=== PATIENT | female | born 1980 | race Caucasian/White ===

== ENCOUNTER 2016-10-06 09:35 | Emergency (ER) | payer SELFPAY ==
[2016-10-06 09:40] VITALS: TEMP 97.9; BMI 21.4
[2016-10-06 11:23] LABS: LEUKOCYTES/URINE 2+ (NEGATIVE); NITRITE/URINE NEG (NEGATIVE); RBC/URINE 0-2 (0-5); URINE OCCULT BLOOD NEG (NEG/TRACE)
--- NOTE | 2016-10-06 11:33 | EDPRACDOC ---
- General Information Chief Complaint: Lower Leg Pain Stated Complaint: LEG PAIN Time Seen by Provider: 10/06/16 11:19 Mode Of Arrival: Car Home Medications: Home Medications Diazepam [Valium] 5 mg PO QHS #14 tablet 10/06/16 Allergies/Adverse Reactions: Allergies Allergy/AdvReac Type Severity Reaction Status Date / Time No Known Allergies Allergy Verified 10/06/16 09:43 - History of Present Illness Onset: 1 WK Medications/Treatment DIRECTOR ENGINEERING Treated With Medication DIRECTOR ENGINEERING YES Medications DIRECTOR ENGINEERING (Medication/ GOODIES POWDER-0400 Dose/Time) HPI: PT PRESENTS TODAY WITH 1 WEEK OF BILATERAL LOWER LEG CRAMPING X 1 WEEK. PT STATES THAT THIS ONLY OCCURS AT NIGHT AND IT IS FINDING IT DIFFICULT TO SLEEP. STATES SHE GOOGLED THE CAUSES AND BELIEVES IT MIGHT EITHER BE DIABETES, RELATED TO A SPIDER BITE SHE INCURRED 2 WEEKS AGO OR . PT STATES 3 EPISODES OF DIARRHEA IN THE LAST 24 HOURS. PT DENIES FEVER, MALLORY, CP, SHOB, ABD PAIN, N/V, DYSURIA. DENIES POLYURIA/DYPSIA/PHAGIA. Mechanism: Reports: None Circumstances: Reports: None History of: Reports: None Severity: Reports: Moderate Able to Bear Weight: Fully Pain In: Reports: Leg - Treatment Prior to ED Arrival Reported Medications/Treatment DIRECTOR ENGINEERING Treated With Medication DIRECTOR ENGINEERING YES Medications DIRECTOR ENGINEERING (Medication/ GOODIES POWDER-0400 Dose/Time) ED Past Medical History - History Reviewed Yes Nurses notes reviewed and agree except as marked - Patient Medical History Surgical History: Reports: Appendectomy. Denies: Hysterectomy - Social Medical History Smoking Status: Heavy tobacco smoker (5 or more cigarettes/day or daily pipe/ cigar) EDM Review of Systems - Review of Systems ROS Negative Except as Marked: Yes All systems reviewed and were negative except as marked Constitutional: No Symptoms Reported Ears: No Symptoms Reported Throat: No Symptoms Reported Nose: No Symptoms Reported Respiratory: No Symptoms Reported Cardiovascular: No Symptoms Reported Gastrointestinal: Diarrhea (X 3) Genitourinary: No Symptoms Reported Neurological: No Symptoms Reported Musculoskeletal: Leg (CRAMPING) Integumentary: Wound - Physical Exam Constitutional: Alert (Awake), No apparent distress Oriented to: Time, Person, Place Last recorded Vital Signs: Last Vital Signs Temp 97.9 F 10/06/16 09:36 Pulse 97 10/06/16 09:36 Resp 20 10/06/16 09:36 BP 137/73 10/06/16 09:36 Pulse Ox 97 10/06/16 09:36 Oxygen Pulse Oxygen Saturation 97 O2 Device Oxygen Flow Rate Fraction of Inspired Oxygen ( FIO2) - HEENT Head: Normal Eye Exam: Normal Oropharynx: Normal Tympanic Membrane: Normal ENT EAC: Normal Nose: No Symptoms Reported Neck: Normal, Denies Pain, Midline - Respiratory/Cardiovascular Respiratory: Normal - CTA Cardiovascular: Normal - GI Palpation: Normal Tenderness: Non tender - Musculoskeletal Back: Normal Extremities: Other (NOTED SMALL RED HAYLEY THAT PT STATES IS A SPIDER BITE; NO NOTED CELLULITIS, SWELLING) - Integumentary Skin: Normal Lymphatics: Normal - Neurologic Cerebellar: Normal Mood Description: Normal Thought: Coherent Perception: Normal ED Low Extremities Phys Exam - Lower Leg Bilateral Anterior Lower Leg Symptoms: Normal (NO SWELLING, PITTING EDEMA, ERYTHEMA, PETECHIA;) - Results Urine Color Yellow 10/06/16 10:55 Urine Clarity Sl hzy 10/06/16 10:55 Urine pH 6.0 (5.0-8.0) 10/06/16 10:55 Ur Specific [place] 1.025 (1.003-1.035) 10/06/16 10:55 Urine Protein Neg (NEG/TRACE) 10/06/16 10:55 Urine Glucose (UA) Neg (NEGATIVE) 10/06/16 10:55 Urine Ketones Neg (NEGATIVE) 10/06/16 10:55 Urine Occult Blood Neg (NEG/TRACE) 10/06/16 10:55 Urine Nitrite Neg (NEGATIVE) 10/06/16 10:55 Urine Bilirubin Neg (NEGATIVE) 10/06/16 10:55 Urine Urobilinogen <2.0 MG/DL (0-1) 10/06/16 10:55 Ur Leukocyte Esterase 2+ (NEGATIVE) H 10/06/16 10:55 Urine RBC 0-2 (0-5) 10/06/16 10:55 Urine WBC 2-5 (0-5) 10/06/16 10:55 Ur Epithelial Cells 4+ 10/06/16 10:55 Urine Bacteria Few (NEG/FEW) 10/06/16 10:55 Urine Mucus Mod (NEG/OCC) H 10/06/16 10:55 Urine Test Neg (NEGATIVE) 10/06/16 10:55 Lab Results 10/06/16 10/06/16 10:55 10:55 Urine Color Yellow Urine Clarity Sl hzy Urine pH 6.0 Ur Specific [place] 1.025 Urine Protein Neg Urine Glucose (UA) Neg Urine Ketones Neg Urine Occult Blood Neg Urine Nitrite Neg Urine Bilirubin Neg Urine Urobilinogen <2.0 Ur Leukocyte Esterase 2+ H Urine RBC 0-2 Urine WBC 2-5 Ur Epithelial Cells 4+ Urine Bacteria Few Urine Mucus Mod H Urine Test Neg Decision Time to Discharge: 11:32 - Departure Disposition: Home Condition: Stable Final Diagnosis: Leg cramp Instructions: Leg Cramps (ED) Education/Counseling Given To: Patient, Significant Other Education/Counseling Given Regarding: Diagnosis, Treatment, Follow Up Referrals: None,No Provider [Primary Care Provider] - One Week You Wilkerson MD [Staff Physician] - One Week Prescriptions: New Diazepam [Valium] 5 mg PO QHS #14 tablet Additional Instructions: CUT DOWN ON CAFFEINE AT LEAST 6 HOURS BEFORE BED TIME. REST AND PLENTY OF WATER. FOLLOW UP WITH PCP FOR ANY WORSE/CONCERNING SYMPTOMS.
[2016-10-06 12:05] VITALS: BP 143/67; PULSE 91
== END 2016-10-06 11:36 | disposition home or self-care (01) ==
LOC: ED 09:35 → EDMC 11:36
DX: R25.2 Cramp and spasm (principal)
CPT/HCPCS: 81001; 81025; 99282